=== PATIENT | male | born 1955 | race African-American/Black ===

== ENCOUNTER 2018-11-04 19:12 | Emergency (ER) | payer MEDICAID, OTHER ==
[~2018-11-04] VITALS: Ht 180.3 cm; Wt 111.1 kg
[2018-11-04 19:21] VITALS: BP 165/105
[2018-11-04] MEDS ORDERED: IBUPROFEN 600 MG TABLET PO ONE ×2 (19:41→20:00)
== END 2018-11-04 19:48 | disposition home or self-care (01) ==
LOC: ER 19:15
DX: M25.461 Effusion, right knee (principal); M25.561 Pain in right knee; I10 Essential (primary) hypertension; E11.9 Type 2 diabetes mellitus without complications; M19.90 Unspecified osteoarthritis, unspecified site; Z60.2 Problems related to living alone
CPT/HCPCS: 99282; A4606